=== PATIENT | female | born 1965 | race Caucasian/White ===

== ENCOUNTER 2021-10-06 12:36 | Outpatient (CLI) | payer BC | END 2021-10-06 12:37 | disposition home or self-care (01) | LOC: CSHMAMMO 12:36 | PROVIDERS: ATTEND Family Medicine | DX: Z12.31 Encounter for screening mammogram for malignant neoplasm of breast (principal); R92.1 Mammographic calcification found on diagnostic imaging of breast; Z80.3 Family history of malignant neoplasm of breast | CPT/HCPCS: 77063; 77067 ==

== ENCOUNTER 2021-10-08 12:48 | Outpatient (CLI) | payer BC | END 2021-10-08 12:49 | disposition home or self-care (01) | LOC: CSHMAMMO 12:48 | PROVIDERS: ATTEND Family Medicine | DX: R92.1 Mammographic calcification found on diagnostic imaging of breast (principal) | CPT/HCPCS: G0279 ==

== ENCOUNTER 2023-05-23 13:41 | Outpatient (CLI) | payer BC | END 2023-05-23 13:42 | disposition home or self-care (01) | LOC: CSHMAMMO 13:41 | PROVIDERS: ATTEND Family Medicine | DX: Z12.31 Encounter for screening mammogram for malignant neoplasm of breast (principal); Z80.3 Family history of malignant neoplasm of breast | CPT/HCPCS: 77063; 77067 ==

== ENCOUNTER 2025-03-04 15:26 | Outpatient (CLI) | payer BC | END 2025-03-04 15:27 | disposition home or self-care (01) | LOC: CSHDTY/OP 15:26 | PROVIDERS: ATTEND Nurse Practitioner Family | DX: Z71.3 Dietary counseling and surveillance (principal) | CPT/HCPCS: 97802 ==